=== PATIENT | male | born 1940 | race Caucasian/White ===

== ENCOUNTER → 2016-11-19 | Outpatient (CLI) | payer MEDICARE | LOC: RAD 15:40 | DX: R05 Cough (principal); J43.9 Emphysema, unspecified | CPT/HCPCS: 71020 ==

== ENCOUNTER → 2016-12-10 | Outpatient (CLI) | payer MEDICARE | LOC: SLEEP 15:39 | DX: G47.33 Obstructive sleep apnea (adult) (pediatric) (principal) | CPT/HCPCS: 95810 ==

== ENCOUNTER → 2021-03-24 | Outpatient (CLI) | payer MEDICARE ==
[~2021-03-24] MED LIST: 24HR ALLERGY REL5 MG PO; AREDS PO; ATORVASTATIN CA10 MG PO; CENTRUM SILVER1 EAC1 PO; FISH OIL 1,0001 EACH PO; FLAX OIL1000 MG PO; FLOMAX 0.4 MG0.4 MG PO; SUPER B-50 COM1 EACH PO
== END ==
LOC: CT 08:41
DX: R10.2 Pelvic and perineal pain (principal); R10.13 Epigastric pain; C91.10 Chronic lymphocytic leukemia of B-cell type not having achieved remission; N40.2 Nodular prostate without lower urinary tract symptoms
CPT/HCPCS: 36415; 82565; Q9967

== ENCOUNTER → 2021-06-28 | Outpatient (CLI) | payer MEDICARE | LOC: KOH-I 11:09 | DX: R07.81 Pleurodynia (principal) | CPT/HCPCS: 71101 ==